=== PATIENT | female | born 1990 | race Caucasian/White ===

== ENCOUNTER 2021-01-27 19:49 | Emergency (ER) | payer BC ==
[2021-01-27] MEDS ORDERED: Sodium Chloride 0.9% 10 ML Syringe FLUSH PRN (19:52)
[2021-01-27] MEDS ORDERED: HYDROmorphone 1 MG/ML Syringe IVPUSH ONE (19:53)
[2021-01-27] MEDS ORDERED: Lactated Ringers 1,000 ML IV SCH (20:00)
--- NOTE | 2021-01-27 20:12 | EDM.PDOC ---
ED HPI GENERAL MEDICAL PROBLEM - General Chief Complaint: Lower Extremity Injury/Pain Stated Complaint: [facility] Time Seen by Provider: 01/27/21 19:52 Source of Information: Reports: Patient, EMS History Limitations: Reports: No Limitations - History of Present Illness INITIAL COMMENTS - FREE TEXT/NARRATIVE: The patient presents by [facility] for right ankle injury. The patient was ridding horse tonight and she got bucked off and landed on her right leg. She as deformity to her right ankle. She has no other injuries. She has no headache, neck pain, chest pain, abdominal pain, or arm pain. She has some mild low back pain. She has no allergies and no medical problems. She is on control. She last ate at lunch around 12. She had some water before she left [place] about an hour ago. Onset: Sudden Duration: Hour(s): Location: Reports: Lower Extremity, Right (ankle) Quality: Reports: Sharp Severity: Severe Improves with: Reports: Immobilization Worsens with: Reports: Movement Context: Reports: Trauma (bucked off horse) Associated Symptoms: Reports: No Other Symptoms Treatments V BELT FINISHER: Reports: Other Medication(s) Other Treatments V BELT FINISHER: fentanyl Right Foot Pain Score (Numeric/FACES): 9 - Related Data Allergies Allergy/AdvReac Type Severity Reaction Status Date / Time No Known Allergies Allergy Verified 01/27/21 19:58 Home Meds: Home Meds Hydrocodone/Acetaminophen [Hydrocodone-Acetamin 5-325 mg] 1 - 2 each PO Q6H PRN #20 tablet 01/27/21 [Rx] Review of Systems - Review of Systems Review Of Systems: See Below Constitutional: Reports: No Symptoms Eyes: Reports: No Symptoms Ears: Reports: No Symptoms Nose: Reports: No Symptoms Mouth/Throat: Reports: No Symptoms Respiratory: Reports: No Symptoms Cardiovascular: Reports: No Symptoms GI/Abdominal: Reports: No Symptoms Genitourinary: Reports: No Symptoms Musculoskeletal: Reports: Other (right ankle deformity) ED EXAM, GENERAL - Physical Exam Exam: See Below Exam Limited By: No Limitations General Appearance: Alert, No Apparent Distress Ears: Normal External Exam Nose: Normal Inspection Head: Atraumatic, Normocephalic Neck: Normal Inspection Respiratory/Chest: No Respiratory Distress, Lungs Clear, Normal Breath Sounds Cardiovascular: Regular Rate, Rhythm, No Edema, No Murmur GI/Abdominal: Soft, Non-Tender, No Organomegaly, No Mass Back Exam: Normal Inspection Extremities: Other (Deformity of the right ankle. Pain upon palpation. Good sensation and pulses distally.) ED TRAUMA EXTREMITY PROCEDURES - Joint Reduction Right Ankle Sedation: Conscious Sedation Pre-Procedure NV Status: Normal Post-Procedure NV Status: Normal Technique: Traction/Counter Traction Number of Attempts: 1 Post-Reduction Imaging: Acceptably Reduced Joint Reduction Complications: No - Splinting Right Lower Extremity Splint Site: right ankle Pre-Procedure NV Status: Normal Post-Procedure NV Status: Normal Splint Material: Fiberglass Splint Design: Stirrup, Posterior Applied & Form Fitted By: Provider Provider Post-Splint Application NV Check: NV Status Normal, Good Position Complications: No Course - Vital Signs Last Recorded V/S: Last Vital Signs Temp 99.1 F 01/27/21 19:52 Pulse 83 01/27/21 19:52 Resp 12 01/27/21 19:52 BP 107/58 L 01/27/21 19:52 Pulse Ox 95 01/27/21 19:52 - Orders/Labs/Meds Orders: Active Orders 24 hr Category Date Time Status Cooling Warming Measures [RC] ASDIRECTED Care 01/27/21 20:54 Active Notify Provider [RC] ASDIRECTED Care 01/27/21 20:54 Active Oxygen Therapy [RC] ASDIRECTED Care 01/27/21 20:54 Active Peripheral IV Care [RC] . DIRECTED Care 01/27/21 19:53 Active Pulse Oximetry [RC] ASDIRECTED Care 01/27/21 20:54 Active Vital Signs [RC] Q15M Care 01/27/21 20:54 Active Ankle 2V Rt [CR] Stat Exams 01/27/21 20:50 Taken Ankle Min 3V Rt [CR] Stat Exams 01/27/21 19:53 Taken Lactated Ringers [Ringers, Lactated] 1,000 ml Med 01/27/21 20:00 Active IV ASDIRECTED Ondansetron [Zofran] Med 01/27/21 20:54 Active 4 mg IVPUSH ONETIME PRN Sodium Chloride 0.9% [Saline Flush] Med 01/27/21 19:52 Active 10 ml FLUSH ASDIRECTED PRN DME for Discharge [COMM] Stat Oth 01/27/21 21:21 Ordered Peripheral IV Insertion Adult [OM.PC] Routine Oth 01/27/21 19:52 Ordered Medication Orders Lactated Ringer's (Ringers, Lactated) 1,000 mls @ 100 mls/hr IV ASDIRECTED AMRINO Last Admin: 01/27/21 20:00 Dose: 100 mls/hr Documented by: LOAN Ondansetron HCl (Ondansetron 4 Mg/2 Ml Sdv) 4 mg IVPUSH ONETIME PRN PRN Reason: Nausea/Vomiting Sodium Chloride (Sodium Chloride 0.9% 10 Ml Syringe) 10 ml FLUSH ASDIRECTED PRN PRN Reason: Keep Vein Open Last Admin: 01/27/21 20:00 Dose: 10 ml Documented by: LOAN Meds: Medications Generic Name Dose Route Start Last Admin Trade Name Freq PRN Reason Stop Dose Admin Lactated Ringer's 1,000 mls @ 100 mls/hr 01/27/21 20:00 01/27/21 20:00 Ringers, Lactated IV 100 mls/hr ASDIRECTED MARINO Administration Ondansetron HCl 4 mg 01/27/21 20:54 Ondansetron 4 Mg/2 Ml Sdv IVPUSH ONETIME PRN Nausea/Vomiting Sodium Chloride 10 ml 01/27/21 19:52 01/27/21 20:00 Sodium Chloride 0.9% 10 Ml Syringe FLUSH 10 ml ASDIRECTED PRN Administration Keep Vein Open Discontinued Medications Generic Name Dose Route Start Last Admin Trade Name Freq PRN Reason Stop Dose Admin Fentanyl Confirm 01/27/21 21:07 Fentanyl 100 Mcg/2 Ml Sdv Administered 01/27/21 21:08 Dose 100 mcg .ROUTE .STK-MED ONE Hydromorphone HCl 1 mg 01/27/21 19:53 01/27/21 20:00 Hydromorphone 1 Mg/Ml Syringe IVPUSH 01/27/21 19:54 1 mg ONETIME ONE Administration Lidocaine HCl Confirm 01/27/21 20:26 Xylocaine-Mpf 1% Administered 01/27/21 20:27 Dose 4 mls @ as directed .ROUTE .STK-MED ONE Midazolam HCl Confirm 01/27/21 20:26 Midazolam 1 Mg/Ml 2 Ml Sdv Administered 01/27/21 20:27 Dose 2 mg .ROUTE .STK-MED ONE Propofol Confirm 01/27/21 20:26 Propofol 200 Mg/20 Ml Sdv Administered 01/27/21 20:27 Dose 200 mg .ROUTE .[facility] ONE - Re-Assessments/Exams Free Text/Narrative Re-Assessment/Exam: 01/27/21 20:11 I ordered an IV LR at 100ml/hr, dilaudid 1mg IV, and an x-ray of her ankle. She did get fentanyl 50mcg IV by EMS on the way here. 01/27/21 21:33 The patient has a bimalleolar fracture dislocation of her right ankle. I had my INSURANCE VERIFIER come in and sedate the patient. I was able to reduce her dislocation and I splinted her ankle. [place] is from out of town. I have made copies of her x- rays and I will discharge her. Departure - Departure Time of Disposition: 21:40 Disposition: Home, Self-Care 01 Condition: Good Clinical Impression: Bimalleolar avulsion fracture of right ankle Fall Qualifiers: Encounter type: initial encounter Qualified Code(s): W19.XXXA - Unspecified fall, initial encounter Dislocation of right ankle joint Qualifiers: Encounter type: initial encounter Qualified Code(s): S93.04XA - Dislocation of right ankle joint, initial encounter - Discharge Information *PRESCRIPTION DRUG MONITORING PROGRAM REVIEWED*: Not Applicable *COPY OF PRESCRIPTION DRUG MONITORING REPORT IN PATIENT DHAVAL: Not Applicable Prescriptions: Hydrocodone/Acetaminophen [Hydrocodone-Acetamin 5-325 mg] 1 - 2 each PO Q6H PRN #20 tablet PRN Reason: Pain Referrals: PCP,Not In Area [Primary Care Provider] - Forms: ED Department Discharge Additional Instructions: Ice your ankle for 15 to 20 minutes every other hour while awake for 3 days. Elevate your ankle as much as you can for 3 days. Take tylenol or motrin for p ain. If that does not help, try the hydrocodone. Follow up with orthopedic surgery within a week. Sepsis Event Note (ED) - Evaluation Sepsis Screening Result: No Definite Risk - Focused Exam Vital Signs: Vital Signs Temp Pulse Resp BP Pulse Ox 01/27/21 19:52 99.1 F 83 12 107/58 L 95 - My Orders Last 24 Hours: My Active Orders 01/27/21 19:52 Sodium Chloride 0.9% [Saline Flush] 10 ml FLUSH ASDIRECTED PRN Peripheral IV Insertion Adult [OM.PC] Routine 01/27/21 19:53 Peripheral IV Care [RC] . DIRECTED Ankle Min 3V Rt [CR] Stat 01/27/21 20:00 Lactated Ringers [Ringers, Lactated] 1,000 ml IV ASDIRECTED 01/27/21 20:50 Ankle 2V Rt [CR] Stat 01/27/21 21:21 DME for Discharge [COMM] Stat - Assessment/Plan Last 24 Hours: My Active Orders 01/27/21 19:52 Sodium Chloride 0.9% [Saline Flush] 10 ml FLUSH ASDIRECTED PRN Peripheral IV Insertion Adult [OM.PC] Routine 01/27/21 19:53 Peripheral IV Care [RC] . DIRECTED Ankle Min 3V Rt [CR] Stat 01/27/21 20:00 Lactated Ringers [Ringers, Lactated] 1,000 ml IV ASDIRECTED 01/27/21 20:50 Ankle 2V Rt [CR] Stat 01/27/21 21:21 DME for Discharge [COMM] Stat
--- NOTE | 2021-01-27 20:22 | PCM.PREANE ---
Preanesthetic Assessment - Procedure Proposed Procedure: Closed Reduction of Right Ankle. - Anesthesia/Transfusion/Family Hx Anesthesia History: Prior Anesthesia Without Reaction Family History of Anesthesia Reaction: No Transfusion History: No Prior Transfusion(s) Intubation History: Unknown - Review of Systems General: No Symptoms Pulmonary: No Symptoms (ETOH: socially, Chew: on occasion: 1730) Cardiovascular: No Symptoms Gastrointestinal: No Symptoms Neurological: No Symptoms (mild lower back pain: 5/10 Right ankle pain: 10/10), Numbness (CTS left hand greater than right.) Other: Reports: None - Physical Assessment NPO Status Date: 01/27/21 NPO Status Time: 12:00 (food) Vital Signs: Last Vital Signs Temp 37.3 C 01/27/21 19:52 Pulse 83 01/27/21 19:52 Resp 12 01/27/21 19:52 BP 107/58 L 01/27/21 19:52 Pulse Ox 95 01/27/21 19:52 Height: 1.6 m Weight: 95.254 kg ASA Class: 3E Mental Status: Alert & Oriented x3 Airway Class: Mallampati = 2 Dentition: Reports: Normal Dentition, Caries Thyro-Mental Finger Breadths: 3 Mouth Opening Finger Breadths: 3 ROM/Head Extension: Full Lungs: Clear to Auscultation, Normal Respiratory Effort Cardiovascular: Regular Rate, Regular Rhythm, No Murmurs - Allergies Allergies/Adverse Reactions: Allergies Allergy/AdvReac Type Severity Reaction Status Date / Time No Known Allergies Allergy Verified 01/27/21 19:58 - Anesthesia Plan Pre-Op Medication Ordered: None - Acknowledgements Anesthesia Type Planned: MAC Pt an Appropriate Candidate for the Planned Anesthesia: Yes Alternatives and Risks of Anesthesia Discussed w Pt/Guardian: Yes Pt/Guardian Understands and Agrees with Anesthesia Plan: Yes PreAnesthesia Questionnaire - Past Health History Medical/Surgical History: Denies Medical/Surgical History - SUBSTANCE USE Tobacco Use Status *Q: Never Tobacco User Recreational Drug Use History: No - HOME MEDS Home Medications: Home Meds . [Unable to Verify Home Med List] 01/27/21 [History] - CURRENT (IN HOUSE) MEDS Current Meds: Current Medications Lactated Ringer's (Ringers, Lactated) 1,000 mls @ 100 mls/hr IV ASDIRECTED [facility] Last Admin: 01/27/21 20:00 Dose: 100 mls/hr Documented by: Sodium Chloride (Sodium Chloride 0.9% 10 Ml Syringe) 10 ml FLUSH ASDIRECTED PRN PRN Reason: Keep Vein Open Last Admin: 01/27/21 20:00 Dose: 10 ml Documented by: Discontinued Medications Hydromorphone HCl (Hydromorphone 1 Mg/Ml Syringe) 1 mg IVPUSH ONETIME ONE Stop: 01/27/21 19:54 Last Admin: 01/27/21 20:00 Dose: 1 mg Documented by:
[2021-01-27] MEDS ORDERED: Midazolam 1 MG/ML 2 ML SDV ONE (20:26)
[2021-01-27] MEDS ORDERED: Propofol 200 MG/20 ML SDV ONE (20:26)
[2021-01-27] MEDS ORDERED: Lidocaine 1% 4 ML ONE (20:26)
[2021-01-27] MEDS ORDERED: Ondansetron 4 MG/2 ML SDV IVPUSH PRN (20:54)
[2021-01-27] MEDS ORDERED: fentaNYL 100 MCG/2 ML SDV ONE (21:07)
--- NOTE | 2021-01-27 21:18 | PCM48HPAN ---
Post Anesthesia Note - EVALUATION WITHIN 48HRS OF ANESTHETIC Vital Signs in Normal Range: Yes Patient Participated in Evaluation: Yes Respiratory Function Stable: Yes Airway Patent: Yes Cardiovascular Function Stable: Yes Hydration Status Stable: Yes Pain Control Satisfactory: Yes Nausea and Vomiting Control Satisfactory: Yes Mental Status Recovered: Yes Vital Signs: Last Vital Signs Temp 37.3 C 01/27/21 19:52 Pulse 83 01/27/21 19:52 Resp 12 01/27/21 19:52 BP 107/58 L 01/27/21 19:52 Pulse Ox 95 01/27/21 19:52
--- NOTE | 2021-01-28 08:04 | CR ---
Right ankle: 2 views of the right ankle were obtained. Displaced distal fibular fracture and displaced medial malleolus fracture are noted. Dislocation is seen at the tibiotalar joint. Diffuse soft tissue swelling is noted. Probable fracture within the posterior malleolus is noted. Impression: 1. Displaced fractures with dislocation are noted. Diagnostic code #3
--- NOTE | 2021-01-28 08:04 | CR ---
Right ankle: 2 views of the right ankle were obtained. Comparison: Prior ankle study performed earlier on the same day (8:27 AM). Prior dislocation has been reduced. Minimal subluxation remains. Slightly displaced medial malleolus fracture and lateral malleolus fractures are noted. Possible posterior malleolus fracture may be present. Diffuse soft tissue swelling is noted. No additional abnormality is appreciated. Impression: 1. Prior dislocation reduced with mild subluxation remaining. 2. Mildly displaced bimalleolar fracture, questionable posterior malleolus fracture. 3. Soft tissue swelling. Diagnostic code #3
== END 2021-01-28 07:11 | disposition home or self-care (01) ==
LOC: JD.ED 19:49
DX: S82.841A Displaced bimalleolar fracture of right lower leg, initial encounter for closed fracture (principal); S93.04XA Dislocation of right ankle joint, initial encounter; V80.010A Animal-rider injured by fall from or being thrown from horse in noncollision accident, initial encounter; Y93.52 Activity, horseback riding
CPT/HCPCS: 27840; 73600; 73610; 96374; 99284; J1170; J2250; J2704; J3010; J7120; 01462; 27810; 99140